=== PATIENT | male | born 1995 | race African-American/Black ===

== ENCOUNTER 2017-08-18 00:10 | Emergency (ER) | payer SELFPAY ==
[2017-08-18] MEDS ORDERED: Naproxen 500 MG TAB ONE (00:36)
[2017-08-18] MEDS ORDERED: HYDROcodone/Acetaminophen 10/325 mg Tablet ONE (00:36)
[2017-08-18] MEDS ORDERED: Ondansetron ODT 4 MG TAB ONE (00:43)
--- NOTE | 2017-08-19 10:57 | RAD ---
RIGHT KNEE 4 VIEWS: HISTORY: Twisting injury with pain right knee, injured at welch. FINDINGS: AP, lateral, and both oblique views right knee are obtained. Four views right knee demonstrate no evidence of right knee fractures, subluxations, or bony lesions. IMPRESSION: Normal 4 views right knee. POS: [facility]
== END 2017-08-18 01:45 | disposition home or self-care (01) ==
LOC: MADERS 00:10
DX: S86.911A Strain of unspecified muscle(s) and tendon(s) at lower leg level, right leg, initial encounter (principal); Z79.899 Other long term (current) drug therapy; V80.010A Animal-rider injured by fall from or being thrown from horse in noncollision accident, initial encounter
CPT/HCPCS: Q0162